=== PATIENT | male | born 1980 ===

== ENCOUNTER 2023-01-05 10:31 | Outpatient (CLI) | payer BC | END 2023-01-05 10:32 | disposition home or self-care (01) | LOC: NAV RAD 10:31 | PROVIDERS: ATTEND Nurse Practitioner Family | DX: M54.50 Low back pain, unspecified (principal); M47.816 Spondylosis without myelopathy or radiculopathy, lumbar region; M46.06 Spinal enthesopathy, lumbar region; M89.38 Hypertrophy of bone, other site | CPT/HCPCS: 72100 ==

== ENCOUNTER 2023-08-15 10:23 | Emergency (ER) | payer BC ==
[2023-08-15] MEDS ORDERED: Bacitracin 1 PK ONE (10:50)
== END 2023-08-15 10:58 | disposition home or self-care (01) ==
LOC: NAV ERS 10:23
DX: L03.113 Cellulitis of right upper limb (principal); S61.412D Laceration without foreign body of left hand, subsequent encounter; Z48.02 Encounter for removal of sutures; F17.220 Nicotine dependence, chewing tobacco, uncomplicated; X58.XXXD Exposure to other specified factors, subsequent encounter
CPT/HCPCS: 99283